=== PATIENT | female | born 1945 | race Caucasian/White ===

== ENCOUNTER 2016-12-20 12:57 | Outpatient (CLI) | payer MEDICARE, OTHER | END 2016-12-20 12:58 | disposition home or self-care (01) | DX: M25.511 Pain in right shoulder (principal); G89.29 Other chronic pain; M75.91 Shoulder lesion, unspecified, right shoulder; S43.491A Other sprain of right shoulder joint, initial encounter; M19.011 Primary osteoarthritis, right shoulder ==

== ENCOUNTER 2017-02-18 09:24 | Outpatient (CLI) | payer MEDICARE, OTHER | END 2017-02-18 09:25 | disposition home or self-care (01) | DX: R01.1 Cardiac murmur, unspecified (principal); I10 Essential (primary) hypertension ==

== ENCOUNTER 2017-06-09 08:49 | Outpatient (CLI) | payer MEDICARE, OTHER ==
[2017-06-09 09:25] LABS: ALBUMIN/GLOBULIN RATIO 1.8 (1.0-2.2); BUN - BLOOD UREA NITROGEN 12 mg/dL (6-20); CALCIUM 9.5 mg/dL (8.5-10.3); CARBON DIOXIDE - CO2 29 mmol/L (21-32); CHLORIDE 103 mmol/L (101-111); CHOL/HDL RATIO 2.4 (<4.4); CHOLESTEROL 220 mg/dL; CREATININE 0.6 mg/dL (0.4-1.0); GFR - MDRD 99 (>89); GLUCOSE 106 mg/dL (70-100); HDL CHOLESTEROL 91 mg/dL; LDL/HDL RATIO 1.3 (<4.4); POTASSIUM 3.9 mmol/L (3.5-5.0); SODIUM 139 mmol/L (135-145); TOTAL PROTEIN 7.1 g/dL (6.7-8.2); TRIGLYCERIDES 46 mg/dL; VLDL CHOLESTEROL 9 mg/dL
[2017-06-09 09:33] LABS: BASOPHILS % (AUTO) 0.4 %; EOSINOPHILS # (AUTO) 0.3 10^3/uL (0.0-0.7); HCT - HEMATOCRIT 39.4 % (37.0-47.0); HGB - HEMOGLOBIN 13.1 g/dL (12.0-16.0); LYMPHOCYTES # (AUTO) 1.6 10^3/uL (1.5-3.5); LYMPHOCYTES % (AUTO) 30.5 %; MEAN CORPUSCULAR HGB CONC 33.3 g/dL (32.0-36.0); MEAN PLATELET VOLUME 7.7 fL (7.9-10.8); MONOCYTES # (AUTO) 0.6 10^3/uL (0.0-1.0); MONOCYTES % (AUTO) 10.4 %; NEUTROPHILS # (AUTO) 2.8 10^3/uL (1.5-6.6); NEUTROPHILS % (AUTO) 52.7 %; RED CELL DISTRIBUTION WIDTH 13.8 % (12.0-15.0); UNCORRECTED WHITE BLOOD COUNT 5.4 x10^3/uL; WHITE BLOOD COUNT 5.4 x10^3/uL (4.8-10.8)
== END 2017-06-09 08:50 | disposition home or self-care (01) ==
LOC: LAB 08:49
PROVIDERS: ATTEND Physician Assistant Medical
DX: I10 Essential (primary) hypertension (principal); E55.9 Vitamin D deficiency, unspecified
CPT/HCPCS: 36415; 80053; 80061; 82306; 85025

== ENCOUNTER 2017-07-03 11:04 | Outpatient (CLI) | payer MEDICARE, OTHER ==
--- NOTE | 2017-07-03 13:08 | XRAY Report ---
TWO VIEW LEFT KNEE: 07/03/2017 CLINICAL INDICATION: Pain. FINDINGS: Frontal and lateral views of the left knee demonstrate no evidence of fracture or dislocat ion. The joint spaces are preserved. No effusion is present. IMPRESSION: NORMAL LEFT KNEE. JOB #: [id number] EXT JOB #:[id number]
== END 2017-07-03 11:05 | disposition home or self-care (01) ==
LOC: DI 11:04
PROVIDERS: ATTEND Family Medicine
DX: M25.562 Pain in left knee (principal)

== ENCOUNTER 2017-10-25 11:22 | Outpatient (CLI) | payer MEDICARE, OTHER ==
--- NOTE | 2017-10-27 08:31 | Mammography Report ---
BILATERAL DIGITAL SCREENING MAMMOGRAM: 10/25/2017 CLINICAL INDICATION: A 72-year-old with history of late childbearing, personal history of right breast cancer status post lumpectomy and radiation therapy, history of benign biopsies, for screening. COMPARISON: 10/2016, 10/2015, 10/2014, 05/2014, 09/2013, 09/2012, 09/2011, 2009. TECHNIQUE: Routine CC and MLO projections were obtained of both breasts. Bilateral laterally exaggerated craniocaudal views were also obtained. FINDINGS: The breasts demonstrate heterogeneously dense fibroglandular parenchyma bilaterally. Coarse and punctate, typically benign calcifications are present. Postoperative and posttreatment changes in the right breast are stable. No suspicious masses, clustered microcalcifications, or regions of architectural distortion are identified. IMPRESSION: Benign findings. RECOMMENDATIONS: Routine annual screening unless otherwise clinically indicated. BIRADS category 2 benign findings. STANDARD QUALIFYING STATEMENTS 1. This examination was reviewed with the aid of Computed-Aided Detection (CAD) . 2. A negative or benign imaging report should not delay biopsy if clinically suspicious findings are present. Consider surgical consultation if warranted. More than 5% of cancers are not identified by imaging. 3. Dense breasts may obscure an underlying neoplasm. TD: 10/26/2017 20:50 NELSON
== END 2017-10-25 11:23 | disposition home or self-care (01) ==
LOC: DI 11:22
PROVIDERS: ATTEND Family Medicine
DX: Z12.31 Encounter for screening mammogram for malignant neoplasm of breast (principal); Z85.3 Personal history of malignant neoplasm of breast; Z92.3 Personal history of irradiation
CPT/HCPCS: 77067

== ENCOUNTER 2018-04-26 08:54 | Outpatient (CLI) | payer MEDICARE, OTHER ==
--- NOTE | 2018-04-26 16:34 | XRAY Report ---
Procedure Date: 04/26/2018 Accession Number: [id number] / [id number] Procedure: XR - Knee 3 View RT CPT Code: FULL RESULT: EXAM: Knee 3 View RT DATE: 04/26/2018 9:34 AM CLINICAL HISTORY: KNEE PAIN, RT COMPARISON: None. TECHNIQUE: 3 views. FINDINGS: Bones: Minimal spurring along the medial knee joint. No fractures or bone lesions. Joints: No significant narrowing. No effusion. No subluxations. Soft Tissues: Quadriceps tendon insertion enthesophyte. No soft tissue swelling. IMPRESSION: Early degenerative change right knee without superimposed acute findings. RADIA
== END 2018-04-26 08:55 | disposition home or self-care (01) ==
LOC: DI 08:54
PROVIDERS: ATTEND Family Medicine
DX: M17.11 Unilateral primary osteoarthritis, right knee (principal)

== ENCOUNTER 2018-10-19 09:34 | Outpatient (CLI) | payer MEDICARE, OTHER ==
[2018-10-19 09:49] LABS: BASOPHILS % (AUTO) 0.7 %; EOSINOPHILS # (AUTO) 0.5 10^3/uL (0.0-0.7); EOSINOPHILS % (AUTO) 10.8 %; LYMPHOCYTES # (AUTO) 1.6 10^3/uL (1.5-3.5); LYMPHOCYTES % (AUTO) 31.7 %; MEAN CORPUSCULAR HEMOGLOBIN 33.4 pg (27.0-31.0); MEAN CORPUSCULAR HGB CONC 34.2 g/dL (32.0-36.0); MEAN CORPUSCULAR VOLUME 97.7 fL (81.0-99.0); MEAN PLATELET VOLUME 7.4 fL (7.9-10.8); MONOCYTES # (AUTO) 0.5 10^3/uL (0.0-1.0); MONOCYTES % (AUTO) 10.3 %; NEUTROPHILS # (AUTO) 2.3 10^3/uL (1.5-6.6); NEUTROPHILS % (AUTO) 46.5 %; PLT - PLATELET COUNT 229 10^3/uL (130-450); RED BLOOD COUNT 4.19 10^6/uL (4.20-5.40); RED CELL DISTRIBUTION WIDTH 12.8 % (12.0-15.0)
[2018-10-19 10:11] LABS: ALBUMIN 4.6 g/dL (3.2-5.5); ALBUMIN/GLOBULIN RATIO 1.6 (1.0-2.2); ALKALINE PHOSPHATASE 52 IU/L (42-121); ALT ALANINE AMINOTRANSFERASE 20 IU/L (10-60); AST ASPARTATE AMINOTRANSFERASE 22 IU/L (10-42); BILIRUBIN,TOTAL 0.9 mg/dL (0.2-1.0); BUN - BLOOD UREA NITROGEN 13 mg/dL (6-20); CALCIUM 9.4 mg/dL (8.5-10.3); CARBON DIOXIDE - CO2 27 mmol/L (21-32); CHLORIDE 100 mmol/L (101-111); CHOL/HDL RATIO 2.6 (<4.4); CHOLESTEROL 235 mg/dL; CREATININE 0.6 mg/dL (0.4-1.0); GFR - MDRD 99 (>89); GLUCOSE 99 mg/dL (70-100); HDL CHOLESTEROL 92 mg/dL; LDL CHOLESTEROL,CALCULATED 127 mg/dL; LDL/HDL RATIO 1.4 (<4.4); SODIUM 136 mmol/L (135-145); TOTAL PROTEIN 7.4 g/dL (6.7-8.2); VLDL CHOLESTEROL 16 mg/dL
== END 2018-10-19 09:35 | disposition home or self-care (01) ==
LOC: LAB 09:34
PROVIDERS: ATTEND Family Medicine
DX: I10 Essential (primary) hypertension (principal); E55.9 Vitamin D deficiency, unspecified; Z13.220 Encounter for screening for lipoid disorders; Z13.29 Encounter for screening for other suspected endocrine disorder
CPT/HCPCS: 36415; 80053; 80061; 82306; 83721; 84443; 85025

== ENCOUNTER 2018-12-06 13:53 | Outpatient (CLI) | payer MEDICARE, OTHER ==
--- NOTE | 2018-12-07 08:52 | Mammography Report ---
Reason: SCREENING MAMMO Procedure Date: 12/06/2018 Accession Number: [id number] / [id number] Procedure: FORREST - Screening Mammo w/Jamaal CPT Code: FULL RESULT: EXAM: Screening Mammo w/Jamaal DATE: 12/06/2018 2:22 PM CLINICAL HISTORY: Screening encounter. History of late childbearing. Personal history of right breast cancer status post lumpectomy and radiation. TECHNIQUE: Bilateral CC and MLO views were obtained. COMPARISON: 10/25/2017 through 05/26/2014. FINDINGS: The breasts demonstrate heterogeneously dense fibroglandular parenchyma bilaterally. Lumpectomy changes in the right breast are stable. No suspicious masses, clustered microcalcifications, or regions of architectural distortion are identified. IMPRESSION: Benign findings RECOMMENDATION: Routine annual screening unless otherwise clinically indicated. BIRADS CATEGORY 2: Benign findings STANDARD QUALIFYING STATEMENTS: 1. This examination was not reviewed with the aid of Computer-Aided Detection (CAD). 2. A negative or benign imaging report should not preclude biopsy if clinically suspicious findings are present. 3. Dense breasts may obscure an underlying neoplasm. 4. This examination was reviewed with the aid of 3D breast imaging (tomosynthesis).
== END 2018-12-06 13:54 | disposition home or self-care (01) ==
LOC: DI 13:53
DX: Z12.31 Encounter for screening mammogram for malignant neoplasm of breast (principal); Z85.3 Personal history of malignant neoplasm of breast
CPT/HCPCS: 77063; 77067

== ENCOUNTER 2019-12-02 08:30 | Outpatient (CLI) | payer MEDICARE, OTHER ==
[2019-12-02 12:10] LABS: BASOPHILS % (AUTO) 0.6 %; EOSINOPHILS # (AUTO) 0.2 10^3/uL (0.0-0.7); EOSINOPHILS % (AUTO) 4.3 %; HGB - HEMOGLOBIN 13.7 g/dL (12.0-16.0); LYMPHOCYTES # (AUTO) 1.7 10^3/uL (1.5-3.5); MEAN CORPUSCULAR HEMOGLOBIN 33.3 pg (27.0-31.0); MONOCYTES # (AUTO) 0.7 10^3/uL (0.0-1.0); MONOCYTES % (AUTO) 14.4 %; NEUTROPHILS % (AUTO) 43.5 %; PLT - PLATELET COUNT 259 10^3/uL (130-450); RED BLOOD COUNT 4.11 10^6/uL (4.20-5.40); RED CELL DISTRIBUTION WIDTH 12.3 % (12.0-15.0); WHITE BLOOD COUNT 4.7 x10^3/uL (4.8-10.8)
[2019-12-02 12:45] LABS: ALBUMIN 4.5 g/dL (3.2-5.5); ALBUMIN/GLOBULIN RATIO 1.6 (1.0-2.2); ALKALINE PHOSPHATASE 44 IU/L (42-121); ALT ALANINE AMINOTRANSFERASE 23 IU/L (10-60); AST ASPARTATE AMINOTRANSFERASE 26 IU/L (10-42); BILIRUBIN,TOTAL 1.2 mg/dL (0.2-1.0); BUN - BLOOD UREA NITROGEN 9 mg/dL (6-20); CALCIUM 9.4 mg/dL (8.5-10.3); CARBON DIOXIDE - CO2 28 mmol/L (21-32); CHLORIDE 100 mmol/L (101-111); CHOL/HDL RATIO 2.2 (<4.4); CHOLESTEROL 199 mg/dL; CREATININE 0.6 mg/dL (0.4-1.0); GFR - MDRD 98 (>89); GLUCOSE 101 mg/dL (70-100); HDL CHOLESTEROL 91 mg/dL; LDL CHOLESTEROL,CALCULATED 97 mg/dL; LDL/HDL RATIO 1.1 (<4.4); SODIUM 137 mmol/L (135-145); TOTAL PROTEIN 7.3 g/dL (6.7-8.2); VLDL CHOLESTEROL 11 mg/dL
== END 2019-12-02 23:59 | disposition home or self-care (01) ==
LOC: LAB.WCP 08:30
PROVIDERS: ATTEND Family Medicine
DX: I10 Essential (primary) hypertension (principal); E04.1 Nontoxic single thyroid nodule
CPT/HCPCS: 36415; 80053; 80061; 83721; 84443; 85025

== ENCOUNTER 2019-12-20 13:08 | Outpatient (CLI) | payer MEDICARE ==
--- NOTE | 2019-12-24 08:52 | Mammography Report ---
Reason: ANNUAL MAMMO Procedure Date: 12/20/2019 Accession Number: [id number] / [id number] Procedure: FORREST - Screening Mammo w/Jamaal CPT Code: Final Report FULL RESULT: EXAM: Screening Mammo w/Jamaal DATE: 12/20/2019 1:46 PM CLINICAL HISTORY: Screening encounter. History of late childbearing and personal history of breast cancer status post right breast lumpectomy in 2006 with chemoradiation. History of benign left breast biopsy. TECHNIQUE: (B) - Bilateral CC and MLO views were obtained. Right laterally exaggerated CC view is obtained. COMPARISON: 12/06/2018 through 09/17/2010. PARENCHYMAL PATTERN: (D) - The breast(s) demonstrate(s) heterogeneously dense fibroglandular parenchyma. FINDINGS: Postlumpectomy and posttreatment changes in the right breast are stable. There are no suspicious masses, calcifications, or areas of distortion. IMPRESSION: Benign findings. BI-RADS category 2. RECOMMENDATION: (ANNUAL) - Recommend routine annual screening mammography. BI-RADS CATEGORY: (2) - Benign Findings. STANDARD QUALIFYING STATEMENTS: 1. This examination was not reviewed with the aid of Computer-Aided Detection (CAD). 2. A negative or benign imaging report should not preclude biopsy if clinically suspicious findings are present. 3. Dense breasts may obscure an underlying neoplasm. 4. This examination was reviewed with the aid of 3D breast imaging (tomosynthesis).
== END 2019-12-20 13:09 | disposition home or self-care (01) ==
LOC: DI 13:08
DX: Z12.31 Encounter for screening mammogram for malignant neoplasm of breast (principal); Z85.3 Personal history of malignant neoplasm of breast; Z92.21 Personal history of antineoplastic chemotherapy; Z92.3 Personal history of irradiation
CPT/HCPCS: 77063; 77067

== ENCOUNTER 2021-01-05 08:33 | Outpatient (CLI) | payer MEDICARE ==
--- NOTE | 2021-01-06 10:05 | Mammography Report ---
BILATERAL DIGITAL SCREENING MAMMOGRAM 3D/2D: 01/05/2021 CLINICAL: Routine screening. Personal history of right breast cancer. Comparison is made to exams dated: 12/20/2019 mammogram, 12/06/2018 mammogram, 10/25/2017 mammogram, 1 12/26/2015 mammogram, 10/15/2015 mammogram, and 10/27/2014 mammogram - [facility]. The tissue of both breasts is heterogeneously dense. This may lower the sensitivity of mammography. There are benign post operative findings in the right breast. No significant masses, calcifications, or other findings are seen in either breast. There has been no significant interval change. IMPRESSION: BENIGN There is no mammographic evidence of malignancy. A 1 year screening mammogram is recommended. This exam was interpreted at Station ID: [id number]. NOTE: For mammograms, a report in lay terms will be sent to the patient. Approximately 15% of breast malignancies will not be visualized mammographically. In the management of a palpable breast mass, a negative mammogram must not discourage biopsy of a clinically suspicious lesion. Electronically Signed By: Brannon Henry M.D. [facility] [place]:01/05/2021 09:55:28 ACR BI-RADS Category 2: Benign Finding(s) 3342F PARENCHYMAL PATTERN: (D) - The breast(s) demonstrate(s) heterogeneously dense fibroglandular ernst valdes. BI-RADS CATEGORY: (2) - 2 RECOMMENDATION: (ANNUAL) - Recommend routine annual screening mammography. [id number] 1 year screening LATERALITY: (B)
== END 2021-01-05 08:34 | disposition home or self-care (01) ==
LOC: DI 08:33
DX: Z12.31 Encounter for screening mammogram for malignant neoplasm of breast (principal); Z08 Encounter for follow-up examination after completed treatment for malignant neoplasm; Z85.3 Personal history of malignant neoplasm of breast

== ENCOUNTER 2021-01-05 09:14 | Outpatient (CLI) | payer MEDICARE ==
[2021-01-05 09:41] LABS: BASOPHILS % (AUTO) 0.5 %; EOSINOPHILS # (AUTO) 0.3 10^3/uL (0.0-0.7); EOSINOPHILS % (AUTO) 4.4 %; HCT - HEMATOCRIT 41.8 % (37.0-47.0); HGB - HEMOGLOBIN 13.9 g/dL (12.0-16.0); LYMPHOCYTES # (AUTO) 1.2 10^3/uL (1.5-3.5); LYMPHOCYTES % (AUTO) 19.8 %; MEAN CORPUSCULAR HEMOGLOBIN 32.8 pg (27.0-31.0); MEAN CORPUSCULAR HGB CONC 33.3 g/dL (32.0-36.0); MEAN CORPUSCULAR VOLUME 98.6 fL (81.0-99.0); MEAN PLATELET VOLUME 9.1 fL (7.9-10.8); MONOCYTES # (AUTO) 0.6 10^3/uL (0.0-1.0); MONOCYTES % (AUTO) 9.5 %; NEUTROPHILS # (AUTO) 3.9 10^3/uL (1.5-6.6); NEUTROPHILS % (AUTO) 65.6 %; PLT - PLATELET COUNT 284 10^3/uL (130-450); RED BLOOD COUNT 4.24 10^6/uL (4.20-5.40); RED CELL DISTRIBUTION WIDTH 12.1 % (12.0-15.0); WHITE BLOOD COUNT 5.9 x10^3/uL (4.8-10.8)
[2021-01-05 10:04] LABS: ALBUMIN 4.6 g/dL (3.2-5.5); ALBUMIN/GLOBULIN RATIO 1.6 (1.0-2.2); ALKALINE PHOSPHATASE 58 IU/L (42-121); ALT ALANINE AMINOTRANSFERASE 19 IU/L (10-60); AST ASPARTATE AMINOTRANSFERASE 21 IU/L (10-42); BILIRUBIN,TOTAL 0.7 mg/dL (0.2-1.0); BUN - BLOOD UREA NITROGEN 14 mg/dL (6-20); CALCIUM 9.6 mg/dL (8.5-10.3); CARBON DIOXIDE - CO2 26 mmol/L (21-32); CHLORIDE 103 mmol/L (101-111); CHOL/HDL RATIO 2.2 (<4.4); CHOLESTEROL 247 mg/dL; CREATININE 0.6 mg/dL (0.4-1.0); GFR - MDRD 98 (>89); GLUCOSE 94 mg/dL (70-100); HDL CHOLESTEROL 110 mg/dL; LDL CHOLESTEROL,CALCULATED 128 mg/dL; LDL/HDL RATIO 1.2 (<4.4); POTASSIUM 3.6 mmol/L (3.5-5.0); SODIUM 140 mmol/L (135-145); TOTAL PROTEIN 7.5 g/dL (6.7-8.2); TRIGLYCERIDES 46 mg/dL; VLDL CHOLESTEROL 9 mg/dL
[2021-01-05 10:12] LABS: THYROID STIMULATING HORMONE 1.4 uIU/mL (0.34-5.60)
== END 2021-01-05 09:15 | disposition home or self-care (01) ==
LOC: LAB 09:14
PROVIDERS: ATTEND Family Medicine
DX: I10 Essential (primary) hypertension (principal); E55.9 Vitamin D deficiency, unspecified; E04.1 Nontoxic single thyroid nodule
CPT/HCPCS: 36415; 80053; 80061; 82306; 83721; 84443; 85025

== ENCOUNTER 2021-01-12 11:55 | Outpatient (CLI) | payer MEDICARE ==
--- NOTE | 2021-01-12 13:15 | XRAY Report ---
PROCEDURE: Hand 3 View RT INDICATIONS: LOCALIZED SWELLING ON FINGER,RIGHT TECHNIQUE: 3 views of the hand(s) acquired. COMPARISON: None. FINDINGS: Bones: No acute fracture or dislocation. Polyarticular osteoarthritic changes are seen throughout the right hand. Findings involve the distal interphalangeal and proximal interphalangeal joints of the s econd through fifth fingers. Findings are most severe in the distal interphalangeal joints of the rig ht fourth and fifth fingers as well as the proximal interphalangeal joint of the right fifth finger. There is mild flexion at the proximal interphalangeal joint of the right fifth finger. There are also severe osteoarthritic changes involving the first carpometacarpal joint. Degenerative changes of the right thumb interphalangeal and metacarpophalangeal joints are visualized with prominent interphalan geal joint osteophyte formation. No periarticular osseous erosions identified. No suspicious bony les ions. Soft tissues: No suspicious soft tissue calcifications. IMPRESSION: Moderate polyarticular osteophytic changes of the right hand most severe at the right first carpometa carpal joint. There is also moderate osteoarthrosis at the proximal interphalangeal joint of the righ t fifth finger as well as the interphalangeal joint of the right thumb. Reviewed by: Malachi Yen MD on 01/12/2021 1:14 PM PST Approved by: Malachi Yen MD on 01/12/2021 1:14 PM PST Station ID: [id number]
== END 2021-01-12 11:56 | disposition home or self-care (01) ==
LOC: DI 11:55
PROVIDERS: ATTEND Family Medicine
DX: R22.31 Localized swelling, mass and lump, right upper limb (principal); M19.041 Primary osteoarthritis, right hand

== ENCOUNTER 2021-02-02 14:23 | Outpatient (CLI) | payer MEDICARE ==
--- NOTE | 2021-02-02 16:34 | XRAY Report ---
PROCEDURE: Finger(s) LT INDICATIONS: LEFT THUMB LACERATION TECHNIQUE: AP hand, 3 views of the left thumb finger(s) acquired. COMPARISON: None FINDINGS: Bones: No acute fractures or dislocations. Moderate degenerative changes of the left thumb interpha langeal, metacarpophalangeal and carpometacarpal joints. Degenerative changes of the triscaphe joint. No suspicious bony lesions. Soft tissues: No suspicious soft tissue calcifications. There is an oblong 4 mm x 2 mm soft tissue density projecting near the distal margin of the left thumb proximal phalanx. There is overlying soft tissue swelling. IMPRESSION: 1. A 4 mm x 2 mm oblong soft tissue density projecting near the distal margin of the left thumb proxi mal phalanx. This is seen near the dorsal aspect of the thumb. Findings may represent a radiopaque so ft tissue foreign body versus chronic soft tissue calcification. Otherwise, no radiopaque soft tissue foreign body visualized in the palmar side of the distal phalanx of the thumb as reported on patient history. 2. Moderate degenerative changes of the left thumb. Reviewed by: Malachi Yen MD on 02/02/2021 4:33 PM PDT Approved by: Malachi Yen MD on 02/02/2021 4:33 PM PDT Station ID: [id number]
== END 2021-02-02 23:59 | disposition home or self-care (01) ==
LOC: DI.N 14:23
PROVIDERS: ATTEND Family Medicine
DX: S61.022A Laceration with foreign body of left thumb without damage to nail, initial encounter (principal); M19.042 Primary osteoarthritis, left hand

== ENCOUNTER 2022-02-15 08:57 | Outpatient (CLI) | payer MEDICARE, BC ==
--- NOTE | 2022-02-16 14:06 | Mammography Report ---
BILATERAL DIGITAL SCREENING MAMMOGRAM 3D/2D: 02/15/2022 CLINICAL: Routine screening. Comparison is made to exams dated: 01/05/2021 mammogram, 12/20/2019 mammogram, 12/06/2018 mammogram, mammogram, 10/25/2016 mammogram, and 10/15/2015 mammogram - [facility]. Th e tissue of both breasts is heterogeneously dense. This may lower the sensitivity of mammography. There are benign calcifications in the left breast. There also are benign post operative findings in the right breast. No significant masses, calcifications, or other findings are seen in either breast. There has been no significant interval change. IMPRESSION: BENIGN There is no mammographic evidence of malignancy. A 1 year screening mammogram is recommended. This exam was interpreted at Station ID: [id number]. NOTE: For mammograms, a report in lay terms will be sent to the patient. Approximately 15% of breast malignancies will not be visualized mammographically. In the management of a palpable breast mass, a negative mammogram must not discourage biopsy of a clinically suspicious lesion. Electronically Signed By: Brannon Henry M.D. [facility] [place]:02/15/2022 12:55:49 ACR BI-RADS Category 2: Benign Finding(s) 3342F PARENCHYMAL PATTERN: (D) - The breast(s) demonstrate(s) heterogeneously dense fibroglandular parjay jay valdes. BI-RADS CATEGORY: (2) - 2 RECOMMENDATION: (ANNUAL) - Recommend routine annual screening mammography. [id number] 1 year screening LATERALITY: (B)
== END 2022-02-15 08:58 | disposition home or self-care (01) ==
LOC: DI.N 08:57
DX: Z12.31 Encounter for screening mammogram for malignant neoplasm of breast (principal)

== ENCOUNTER 2022-03-15 14:26 | Outpatient (CLI) | payer MEDICARE, BC ==
[2022-03-15 18:17] LABS: FECAL OCCULT BLOOD (FIT) NEGATIVE (NEGATIVE)
== END 2022-03-15 23:59 | disposition home or self-care (01) ==
LOC: LAB.N 14:26
PROVIDERS: ATTEND Family Medicine
DX: Z12.11 Encounter for screening for malignant neoplasm of colon (principal)
CPT/HCPCS: 82274

== ENCOUNTER 2022-04-16 09:37 | Outpatient (CLI) | payer MEDICARE ==
[2022-04-16 19:09] LABS: BASOPHILS % (AUTO) 0.8 %; EOSINOPHILS # (AUTO) 0.1 10^3/uL (0.0-0.7); EOSINOPHILS % (AUTO) 2.6 %; HCT - HEMATOCRIT 41.8 % (37.0-47.0); HGB - HEMOGLOBIN 13.6 g/dL (12.0-16.0); LYMPHOCYTES # (AUTO) 1.6 10^3/uL (1.5-3.5); LYMPHOCYTES % (AUTO) 31.2 %; MEAN CORPUSCULAR HGB CONC 32.5 g/dL (32.0-36.0); MEAN CORPUSCULAR VOLUME 98.4 fL (81.0-99.0); MEAN PLATELET VOLUME 10.1 fL (7.9-10.8); MONOCYTES # (AUTO) 0.7 10^3/uL (0.0-1.0); MONOCYTES % (AUTO) 13.3 %; NEUTROPHILS # (AUTO) 2.6 10^3/uL (1.5-6.6); NEUTROPHILS % (AUTO) 51.7 %; PLT - PLATELET COUNT 269 10^3/uL (130-450); RED BLOOD COUNT 4.25 10^6/uL (4.20-5.40); RED CELL DISTRIBUTION WIDTH 12.8 % (12.0-15.0)
[2022-04-16 19:44] LABS: ALBUMIN 4.6 g/dL (3.2-5.5); ALBUMIN/GLOBULIN RATIO 1.5 (1.0-2.2); ALKALINE PHOSPHATASE 56 IU/L (42-121); ALT ALANINE AMINOTRANSFERASE 23 IU/L (10-60); AST ASPARTATE AMINOTRANSFERASE 25 IU/L (10-42); BILIRUBIN,TOTAL 0.7 mg/dL (0.2-1.0); BUN - BLOOD UREA NITROGEN 11 mg/dL (6-20); CALCIUM 9.8 mg/dL (8.5-10.3); CARBON DIOXIDE - CO2 28 mmol/L (21-32); CHLORIDE 101 mmol/L (101-111); CHOL/HDL RATIO 1.9 (<4.4); CHOLESTEROL 222 mg/dL; CREATININE 0.6 mg/dL (0.4-1.0); GFR - MDRD 98 (>89); GLUCOSE 111 mg/dL (70-100); HDL CHOLESTEROL 115 mg/dL; LDL CHOLESTEROL,CALCULATED 98 mg/dL; LDL/HDL RATIO 0.9 (<4.4); SODIUM 138 mmol/L (135-145); TOTAL PROTEIN 7.7 g/dL (6.7-8.2); TRIGLYCERIDES 45 mg/dL; VLDL CHOLESTEROL 9 mg/dL
== END 2022-04-16 09:38 | disposition home or self-care (01) ==
LOC: LAB.N 09:37
PROVIDERS: ATTEND Nurse Practitioner Family
DX: I10 Essential (primary) hypertension (principal); Z13.220 Encounter for screening for lipoid disorders; E55.9 Vitamin D deficiency, unspecified
CPT/HCPCS: 36415; 80053; 80061; 82306; 83721; 85025

== ENCOUNTER 2022-04-26 10:51 | Outpatient (CLI) | payer MEDICARE | END 2022-04-26 10:52 | disposition home or self-care (01) | LOC: DI 10:51 | PROVIDERS: ATTEND Nurse Practitioner Family | DX: I51.7 Cardiomegaly (principal); I77.819 Aortic ectasia, unspecified site | CPT/HCPCS: 93306 ==

== ENCOUNTER 2022-05-27 15:19 | Emergency (ER) | payer MEDICARE ==
[2022-05-27 15:55] LABS: BASOPHILS # (AUTO) 0.1 10^3/uL (0.0-0.1); BASOPHILS % (AUTO) 0.9 %; EOSINOPHILS % (AUTO) 11.8 %; HGB - HEMOGLOBIN 13.8 g/dL (12.0-16.0); LYMPHOCYTES # (AUTO) 1.8 10^3/uL (1.5-3.5); LYMPHOCYTES % (AUTO) 21.4 %; MEAN CORPUSCULAR HEMOGLOBIN 32.8 pg (27.0-31.0); MEAN CORPUSCULAR HGB CONC 33.7 g/dL (32.0-36.0); MEAN CORPUSCULAR VOLUME 97.4 fL (81.0-99.0); MEAN PLATELET VOLUME 9.3 fL (7.9-10.8); MONOCYTES # (AUTO) 0.8 10^3/uL (0.0-1.0); MONOCYTES % (AUTO) 9.6 %; NEUTROPHILS # (AUTO) 4.6 10^3/uL (1.5-6.6); NEUTROPHILS % (AUTO) 55.9 %; PLT - PLATELET COUNT 253 10^3/uL (130-450); RED BLOOD COUNT 4.21 10^6/uL (4.20-5.40); RED CELL DISTRIBUTION WIDTH 12.3 % (12.0-15.0); WHITE BLOOD COUNT 8.2 x10^3/uL (4.8-10.8)
[2022-05-27 16:11] LABS: ALBUMIN 4.7 g/dL (3.2-5.5); ALBUMIN/GLOBULIN RATIO 1.7 (1.0-2.2); BILIRUBIN,TOTAL 0.8 mg/dL (0.2-1.0); CALCIUM 9.5 mg/dL (8.5-10.3); CREATININE 0.6 mg/dL (0.4-1.0); POTASSIUM 3.7 mmol/L (3.5-5.0); TOTAL PROTEIN 7.4 g/dL (6.7-8.2)
--- NOTE | 2022-05-27 16:46 | ED Physician Documentation ---
PD HPI CHEST PAIN - Stated complaint Stated Complaint: HYPERTENSION - Chief complaint Chief Complaint: Cardiac - History obtained from History obtained from: Patient - History of Present Illness Timing - onset: Today Timing - onset during: Rest, Light activity (awoke this morning and felt okay, with normal usual AM BP of 133 systolic. Later in morning she felt somewhat lightheaded and some dyspnea. Took BP again and it was 190-200 systolic for several readings. Called PMD office and was directed to come to ER and they were going to phone in [facility].) Timing - duration: Hours (her BP stayed elevated to over 180 systolic for few hours.) Timing - details: Gradual onset, Still present Quality: Pressure Location: Right shoulder/arm Worsened by: No: Exertion, Inspiration, Movement Associated symptoms: Feeling faint / dizzy (pressure feeling in head.). No: Shortness of air, Nausea Similar symptoms before: Diagnosis (has had similar symptoms when atrial fib or rapid rate, and with elevated BP. She states BP recently has been about 130-150 systolic in mornings, so reasonably controlled.) Recently seen: Not recently seen Review of Systems Constitutional: denies: Fever Nose: denies: Rhinorrhea / runny nose, Congestion Throat: denies: Sore throat Cardiac: denies: Pedal edema, Calf pain Respiratory: denies: Dyspnea, Cough GI: denies: Nausea, Vomiting, Diarrhea, Bloody / black stool Neurologic: denies: Generalized weakness PD PAST MEDICAL HISTORY - Past Medical History Cardiovascular: Hypertension, Atrial fibrillation (has piano technician first appt Johanna 20 I believe she said.) Respiratory: Asthma Neuro: None Endocrine/Autoimmune: None GI: None 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: Breast cancer : None HEENT: None Musculoskeletal: Osteoarthritis Derm: None - Past Surgical History Past Surgical History: Yes Ortho: Other /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: Mastectomy - Present Medications Home Medications: Ambulatory Orders Medication Instructions Recorded Confirmed ALPRAZolam [Xanax] 0.25 mg PO HS PRN 03/18/13 04/28/22 Azelastine HCl [Astepro] 1 spray NS DAILY 03/18/13 04/28/22 Fluticasone [Flonase] 1 sprays RAMIN BID 03/18/13 04/28/22 Fluticasone/Salmeterol 250/50 2 puffs INH BID 03/18/13 04/28/22 [Advair 250 Mcg/50 Mcg] Diltiazem HCl [Cardizem LA] 120 mg PO DAILY #30 tab 04/11/22 Amlodipine Besylate [Norvasc] 10 mg ORAL DAILY 04/28/22 04/28/22 Metoprolol Tartrate [Lopressor] 50 mg PO DAILY 30 Days #30 tablet 04/28/22 Apixaban [Eliquis] 5 mg PO BID #60 tablet 05/22/22 Metoprolol Succinate [Toprol Xl] 50 mg PO DAILY #30 tablet 05/22/22 - Allergies Allergies/Adverse Reactions: Allergies Allergy/AdvReac Type Severity Reaction Status Date / Time chlordiazepoxide HCl * Allergy Severe Rash Verified 05/27/22 15:39 [From Librium] phenobarbital Allergy Severe Rash Verified 05/27/22 15:39 nickel [Nickel] Allergy Intermediate Rash Verified 05/27/22 15:39 Sulfa (Sulfonamide Allergy Intermediate Rash Verified 05/27/22 15:39 Antibiotics) prednisolone Allergy Unknown Verified 05/27/22 15:39 prednisone Allergy Unknown Verified 05/27/22 15:39 lisinopril AdvReac Unknown Verified 05/27/22 15:39 - Social History Does the pt smoke?: No Smoking Status: Never smoker Does the pt drink ETOH?: Yes Does the pt have substance abuse?: Yes - Immunizations Immunizations are current?: Yes PD ED PE NORMAL - Vitals Vital signs reviewed: Yes - General General: Alert and oriented X 3, No acute distress, Well developed/nourished - Neck Neck: Supple, no meningeal sign, No adenopathy - Cardiac Cardiac: RRR, No murmur - Respiratory Respiratory: No respiratory distress, Clear bilaterally - Abdomen Abdomen: Soft, Non tender - Derm Derm: Normal color, Warm and dry - Extremities Extremities: No edema, No calf tenderness / cord - Neuro Neuro: Alert and oriented X 3, No motor deficit, Normal speech Results - Vitals Vitals: Vital Signs - 24 hr 05/27/22 05/27/22 05/27/22 15:36 16:32 17:33 Temperature 36.9 C Heart Rate 71 54 L Respiratory 16 10 L Rate Blood Pressure 176/81 H 134/71 H Blood Pressure 155/71 H [Right] O2 Saturation 98 99 Oxygen O2 Source Room air - EKG (time done) 15:44 Rate: Rate (enter#) (70) Rhythm: NSR Hiko: Normal Intervals: Normal FL QRS: Normal Ischemia: Normal ST segments. No: ST elevation c/w ischemia, ST depression Compare to prior EKG: Unchanged from prior EKG - Labs Labs: Laboratory Tests 05/27/22 05/27/22 05/27/22 15:48 15:48 15:48 WBC 8.2 RBC 4.21 Hgb 13.8 Hct 41.0 MCV 97.4 MCH 32.8 H MCHC 33.7 RDW 12.3 Plt Count 253 MPV 9.3 Neut # (Auto) 4.6 Lymph # (Auto) 1.8 [place] # (Auto) 0.8 Eos # (Auto) 1.0 H Baso # (Auto) 0.1 Absolute Nucleated RBC 0.00 Nucleated RBC % 0.0 Sodium 133 L Potassium 3.7 Chloride 96 L Carbon Dioxide 26 Anion Gap 11.0 BUN 15 Creatinine 0.6 Estimated GFR (MDRD) 97 Glucose 204 H Calcium 9.5 Total Bilirubin 0.8 AST 24 ALT 24 Alkaline Phosphatase 55 Troponin I High Sens 4.1 Total Protein 7.4 Albumin 4.7 Globulin 2.7 Albumin/Globulin Ratio 1.7 Lipase 26 PD MEDICAL DECISION MAKING - ED course Complexity details: reviewed results, considered differential (She is not in atrial fib. BP comes down reasonably here without intervention. I would be reluctant to start new BP med based on just elevated today. She is going to tack picker new Rx from PCP office but I encourage her to watch BP over next couple of days or more before starting it. ), d/w patient Departure - Departure Disposition: Home, Self Care Clinical Impression: Transient hypertension, Paroxysmal atrial fibrillation Condition: Stable Record reviewed to determine appropriate education?: Yes Follow-Up: [facility] [Provider Group] Comments: Your heart rhythm is normal at this time without atrial fibrillation. Your blood pressure is decreasing reasonably without particular treatment. I would suggest that you continue with the metoprolol current dosing. You can tack picker the myocarditis prescribed by your primary care but I would actually hold off on starting it until you see how your blood pressure is doing tomorrow and the next day. I would be hesitant to overreact to the blood pressure being elevated today since it was good at 130s systolic yesterday and this morning. Follow-up with piano technician as planned in June. Hopefully your primary care will be able to set you up for a recording heart monitor in the interval before that. Return to the ER as needed. Discharge Date/Time: 05/27/22 17:38
[2022-05-27 17:33] VITALS: BP 134/71
== END 2022-05-27 17:38 | disposition home or self-care (01) ==
LOC: ED 15:19
DX: I10 Essential (primary) hypertension (principal); I48.0 Paroxysmal atrial fibrillation; Z79.01 Long term (current) use of anticoagulants
CPT/HCPCS: 36415; 80053; 83690; 84484; 85025; 93005; 99282; 99284

== ENCOUNTER 2022-10-27 12:52 | Outpatient (CLI) | payer MEDICARE ==
--- NOTE | 2022-10-27 17:07 | DEXA Report ---
PROCEDURE: Dexa Spine and/or Hip INDICATIONS: POST MENOPAUSAL TECHNIQUE: Dual energy x-ray absorptiometry (DXA) was performed on a [employer] System. Regions measur ed are the AP Spine, femoral neck, and if needed forearm. COMPARISON: None. FINDINGS: Lumbar Spine: Bone Mineral Density 1.300 g/cm/cm,T score 1.0. Left Femoral Neck: Bone Mineral Density 0.878 g/cm/cm, T score -1.2. Left Hip: Bone Mineral Density 0.875 g/cm/cm,T score -1.1. (T score greater or equal to -1.0: NORMAL) (T score from -1.1 to -2.4: OSTEOPENIA) (T score less than or equal to -2.5 to: OSTEOPOROSIS) Impression: Osteopenia. Patients with diagnosis of osteoporosis or osteopenia should have regular bone mineral density assess ment. For those eligible for Medicare, routine testing is allowed once every 2 years. Testing frequ ency can be increased for patients who have rapidly progressing disease or for those who are receivin g medical therapy to restore bone mass. Reviewed by: Raymond Prabhakar MD on 10/27/2022 5:05 PM PST Approved by: Raymond Prabhakar MD on 10/27/2022 5:05 PM PST Station ID: [id number]
== END 2022-10-27 12:53 | disposition home or self-care (01) ==
LOC: DI 12:52
PROVIDERS: ATTEND Nurse Practitioner Family
DX: M85.89 Other specified disorders of bone density and structure, multiple sites (principal); Z78.0 Asymptomatic menopausal state

== ENCOUNTER 2022-11-04 12:56 | Outpatient (CLI) | payer MEDICARE | END 2022-11-04 12:57 | disposition home or self-care (01) | LOC: LAB.N 12:56 | PROVIDERS: ATTEND Nurse Practitioner | DX: Z53.9 Procedure and treatment not carried out, unspecified reason (principal) ==

== ENCOUNTER 2022-11-07 11:17 | Outpatient (CLI) | payer MEDICARE ==
[2022-11-07 18:11] LABS: CALCIUM 9.7 mg/dL (8.5-10.3); CREATININE 0.6 mg/dL (0.4-1.0); POTASSIUM 4.6 mmol/L (3.5-5.0)
== END 2022-11-07 11:18 | disposition home or self-care (01) ==
LOC: LAB.N 11:17
PROVIDERS: ATTEND Internal Medicine Cardiovascular Disease
DX: I48.0 Paroxysmal atrial fibrillation (principal)
CPT/HCPCS: 36415; 80048; 84443

== ENCOUNTER 2022-11-21 08:00 | Outpatient (CLI) | payer MEDICARE | END 2022-11-21 23:59 | disposition home or self-care (01) | LOC: LAB.N 08:00 | PROVIDERS: ATTEND Internal Medicine Cardiovascular Disease | DX: U07.1 COVID-19 (principal); I48.0 Paroxysmal atrial fibrillation ==

== ENCOUNTER 2023-02-16 08:21 | Outpatient (CLI) | payer MEDICARE ==
--- NOTE | 2023-02-17 09:23 | Mammography Report ---
BILATERAL DIGITAL SCREENING MAMMOGRAM 3D/2D: 02/16/2023 CLINICAL: Routine screening. Personal history of right breast cancer. High risk screening. Routine sc reening. Comparison is made to exams dated: 02/15/2022 mammogram, 01/05/2021 mammogram, 12/20/2019 mammogram, 11/08 mammogram, 10/25/2017 mammogram, and 10/25/2016 mammogram - [facility]. Both breasts are heterogeneously dense, which may obscure small masses (category c / 51-75% glandular tissue). There are benign calcifications in the left breast. There also are benign post operative findings in the right breast. No significant masses, calcifications, or other findings are seen in either breast. There has been no significant interval change. IMPRESSION: BENIGN There is no mammographic evidence of malignancy. A 1 year screening mammogram is recommended. This exam was interpreted at Station ID: [id number]. NOTE: For mammograms, a report in lay terms will be sent to the patient. Approximately 15% of breast malignancies will not be visualized mammographically. In the management of a palpable breast mass, a negative mammogram must not discourage biopsy of a clinically suspicious lesion. Electronically Signed By: Malachi Yen M.D. [facility]:02/16/2023 09:12:19 letter sent: No_Letter ACR BI-RADS Category 2: Benign Finding(s) 3342F PARENCHYMAL PATTERN: (D) - The breast(s) demonstrate(s) heterogeneously dense fibroglandular ernst valdes. BI-RADS CATEGORY: (2) - 2 Mammogram [id number] 1 year screening LATERALITY: (B)
== END 2023-02-16 08:22 | disposition home or self-care (01) ==
LOC: DI.N 08:21
DX: Z12.31 Encounter for screening mammogram for malignant neoplasm of breast (principal); Z85.3 Personal history of malignant neoplasm of breast

== ENCOUNTER 2023-05-31 17:11 | Emergency (ER) | payer MEDICARE ==
[2023-05-31 17:27] VITALS: BP 164/89
[2023-05-31 17:48] LABS: BASOPHILS # (AUTO) 0.1 10^3/uL (0.0-0.1); BASOPHILS % (AUTO) 0.7 %; EOSINOPHILS # (AUTO) 0.3 10^3/uL (0.0-0.7); EOSINOPHILS % (AUTO) 4.6 %; HCT - HEMATOCRIT 39.5 % (37.0-47.0); HGB - HEMOGLOBIN 13.1 g/dL (12.0-16.0); LYMPHOCYTES # (AUTO) 1.8 10^3/uL (1.5-3.5); LYMPHOCYTES % (AUTO) 24.5 %; MEAN CORPUSCULAR HGB CONC 33.2 g/dL (32.0-36.0); MEAN CORPUSCULAR VOLUME 96.6 fL (81.0-99.0); MEAN PLATELET VOLUME 9.2 fL (7.9-10.8); MONOCYTES # (AUTO) 0.7 10^3/uL (0.0-1.0); MONOCYTES % (AUTO) 9.3 %; NEUTROPHILS # (AUTO) 4.4 10^3/uL (1.5-6.6); NEUTROPHILS % (AUTO) 60.6 %; PLT - PLATELET COUNT 269 10^3/uL (130-450); RED BLOOD COUNT 4.09 10^6/uL (4.20-5.40); RED CELL DISTRIBUTION WIDTH 12.8 % (12.0-15.0); WHITE BLOOD COUNT 7.2 x10^3/uL (4.8-10.8)
--- NOTE | 2023-05-31 17:58 | XRAY Report ---
PROCEDURE: Chest 1 View X-Ray INDICATIONS: Chest Pain TECHNIQUE: One view of the chest was acquired. COMPARISON: Chest x-ray 05/17/2022. FINDINGS: Surgical changes and devices: Right axillary clips as well as clips overlying the inferior right hem ithorax. Lungs and pleura: No pleural effusions or pneumothorax. Lungs are clear. Mediastinum: Mediastinal contours appear normal. Heart size is mildly prominent. Bones and chest wall: No suspicious bony lesions. Overlying soft tissues appear unremarkable. IMPRESSION: No acute cardiopulmonary process. Reviewed by: Colette Headley MD on 05/31/2023 5:56 PM PDT Approved by: Colette Headley MD on 05/31/2023 5:56 PM PDT Station ID: [id number]
[2023-05-31 18:04] LABS: ALBUMIN 4.7 g/dL (3.2-5.5); ALBUMIN/GLOBULIN RATIO 1.7 (1.0-2.2); BILIRUBIN,TOTAL 0.6 mg/dL (0.2-1.0); CALCIUM 9.8 mg/dL (8.5-10.3); CREATININE 0.6 mg/dL (0.6-1.3); POTASSIUM 3.4 mmol/L (3.5-4.5); TOTAL PROTEIN 7.4 g/dL (6.4-8.9)
--- NOTE | 2023-05-31 18:17 | ED Physician Documentation ---
History of Present Illness - Stated complaint Stated Complaint: CHEST PX,HIGH BP - Chief complaint Chief Complaint: General - History obtained from History obtained from: Patient - Additonal information Additional information: 78-year-old woman with history of atrial fibrillation, has not had A-fib since an ablation done earlier this year. No history of cardiac ischemia. Last 2 weeks she has had intermittent anterior bilateral neck pressure and today developed more chest tightness. She is not short of breath. No new pedal edema but has ongoing issues related to osteoarthritis of the knee and ankles. PD PAST MEDICAL HISTORY - Past Medical History Past Medical History: Yes Cardiovascular: Hypertension, Atrial fibrillation Respiratory: Asthma Neuro: None Endocrine/Autoimmune: None GI: None ART EDUCATOR: Breast cancer : None HEENT: None Musculoskeletal: Osteoarthritis Derm: None - Past Surgical History Past Surgical History: Yes Ortho: Other /ART EDUCATOR: Mastectomy Cardiovascular: Other - Present Medications Home Medications: Ambulatory Orders Medication Instructions Recorded Confirmed ALPRAZolam [Xanax] 0.25 mg PO HS PRN 03/18/13 05/31/23 Azelastine HCl [Astepro] 1 spray NS DAILY 03/18/13 05/31/23 Fluticasone [Flonase] 1 sprays RAMIN BID 03/18/13 05/31/23 Fluticasone/Salmeterol 250/50 2 puffs INH BID 03/18/13 05/31/23 [Advair 250 Mcg/50 Mcg] Apixaban [Eliquis] 5 mg PO BID #60 tablet 05/22/22 05/31/23 Metoprolol Succinate [Toprol Xl] 50 mg PO DAILY #30 tablet 05/22/22 05/31/23 - Allergies Allergies/Adverse Reactions: Allergies Allergy/AdvReac Type Severity Reaction Status Date / Time chlordiazepoxide HCl * Allergy Severe Rash Verified 05/31/23 17:23 [From Librium] phenobarbital Allergy Severe Rash Verified 05/31/23 17:23 nickel [Nickel] Allergy Intermediate Rash Verified 05/31/23 17:23 Sulfa (Sulfonamide Allergy Intermediate Rash Verified 05/31/23 17:23 Antibiotics) prednisolone Allergy Unknown Verified 05/31/23 17:23 prednisone Allergy Unknown Verified 05/31/23 17:23 lisinopril AdvReac Unknown Verified 05/31/23 17:23 - Social History Does the pt smoke?: No Smoking Status: Never smoker Does the pt drink ETOH?: Yes Does the pt have substance abuse?: Yes - Immunizations Immunizations are current?: Yes PD ED PE NORMAL - Vitals Vital signs reviewed: Yes - General General: Alert and oriented X 3, No acute distress - Neck Neck: Supple, no meningeal sign, No bony TTP - Cardiac Cardiac: RRR, No murmur - Respiratory Respiratory: No respiratory distress, Clear bilaterally - Abdomen Abdomen: Non tender - Back Back: No CVA TTP, No spinal TTP - Derm Derm: Normal color, Warm and dry - Extremities Extremities: No edema, No calf tenderness / cord - Neuro Neuro: Alert and oriented X 3, Normal speech Results - Vitals Vitals: Vital Signs - 24 hr 05/31/23 17:20 Temperature 36.7 C Heart Rate 80 Respiratory 18 Rate Blood Pressure 164/89 H O2 Saturation 99 Oxygen O2 Source Room air - EKG (time done) 1717 EKG releavant findings:: EKG personally interpreted by author of this note. Relevant findings are: Rate: Rate (enter#) (85) Rhythm: NSR [place]: Normal Intervals: Normal MT QRS: LVH Ischemia: Normal ST segments - Labs Labs: Laboratory Tests 05/31/23 05/31/23 05/31/23 17:30 17:30 17:30 WBC 7.2 RBC 4.09 L Hgb 13.1 Hct 39.5 MCV 96.6 MCH 32.0 H MCHC 33.2 RDW 12.8 Plt Count 269 MPV 9.2 Neut # (Auto) 4.4 Lymph # (Auto) 1.8 [place] # (Auto) 0.7 Eos # (Auto) 0.3 Baso # (Auto) 0.1 Absolute Nucleated RBC 0.00 Nucleated RBC % 0.0 Sodium 135 Potassium 3.4 L Chloride 99 L Carbon Dioxide 27 Anion Gap 9.0 BUN 10 Creatinine 0.6 Estimated GFR (MDRD) 97 Glucose 129 H Calcium 9.8 Total Bilirubin 0.6 AST 27 ALT 27 Alkaline Phosphatase 68 Troponin I High Sens 4.1 Total Protein 7.4 Albumin 4.7 Globulin 2.7 Albumin/Globulin Ratio 1.7 Lipase 8 L - Rads (name of study) Single view chest x-ray is unremarkable Relevant Findings:: Final report received, EMP independent interpretation of test PD Medical Decision Making - ED course ED course: 78-year-old woman presents with ongoing neck pain and chest tightness concerning for an anginal equivalent. EKG and troponin are without evidence of ischemia here. Close cardiology follow-up was advised. CBC, CMP were normal/negative. Departure - Departure Disposition: 01 Home, Self Care Clinical Impression: Chest tightness Condition: Good Record reviewed to determine appropriate education?: Yes Instructions: ED Chest Pain NonCardiac Comments: No evidence of cardiac ischemia today. You should still call Dr. Nelson's office tomorrow, I would not be surprised if he would like to have a stress test performed. Return for new or worsening symptoms. Pending consultation with Dr. Nelson I would go back to the 50 mg of metoprolol a day and start a baby aspirin. Discharge Date/Time: 05/31/23 18:40
[2023-05-31] MEDS ORDERED: ASPIRIN CHEW 81 MG TABLET PO STA (18:18)
[2023-05-31] MEDS ORDERED: METOPROLOL TARTRATE 50 MG TABLET PO STA (18:19)
== END 2023-05-31 18:40 | disposition home or self-care (01) ==
LOC: ED 17:11
DX: R07.9 Chest pain, unspecified (principal); I10 Essential (primary) hypertension; I48.91 Unspecified atrial fibrillation; Z79.01 Long term (current) use of anticoagulants
CPT/HCPCS: 36415; 71045; 80053; 83690; 84484; 85025; 93005; 99283; 99284; A9270

== ENCOUNTER 2023-11-30 15:17 | Outpatient (CLI) | payer MEDICARE ==
[2023-11-30 15:43] LABS: BASOPHILS % (AUTO) 0.4 %; EOSINOPHILS # (AUTO) 0.3 10^3/uL (0.0-0.7); EOSINOPHILS % (AUTO) 4.3 %; HCT - HEMATOCRIT 38.4 % (37.0-47.0); HGB - HEMOGLOBIN 12.4 g/dL (12.0-16.0); LYMPHOCYTES # (AUTO) 1.5 10^3/uL (1.5-3.5); LYMPHOCYTES % (AUTO) 18.6 %; MEAN CORPUSCULAR HGB CONC 32.3 g/dL (32.0-36.0); MEAN PLATELET VOLUME 9.5 fL (7.9-10.8); MONOCYTES # (AUTO) 0.8 10^3/uL (0.0-1.0); MONOCYTES % (AUTO) 10.1 %; NEUTROPHILS # (AUTO) 5.3 10^3/uL (1.5-6.6); NEUTROPHILS % (AUTO) 66.3 %; PLT - PLATELET COUNT 248 10^3/uL (130-450); RED BLOOD COUNT 3.88 10^6/uL (4.20-5.40); RED CELL DISTRIBUTION WIDTH 12.9 % (12.0-15.0)
[2023-11-30 16:04] LABS: ALBUMIN 4.4 g/dL (3.2-5.5); ALBUMIN/GLOBULIN RATIO 1.6 (1.0-2.2); BILIRUBIN,TOTAL 0.4 mg/dL (0.2-1.0); CALCIUM 9.4 mg/dL (8.5-10.3); CREATININE 0.5 mg/dL (0.6-1.3); POTASSIUM 4.1 mmol/L (3.5-4.5); TOTAL PROTEIN 7.2 g/dL (6.4-8.9)
[2023-11-30 16:13] LABS: THYROID STIMULATING HORMONE 1.11 uIU/mL (0.34-5.60)
[2023-11-30 16:20] LABS: FERRITIN 91.6 ng/mL (11.0-306.8)
== END 2023-11-30 15:18 | disposition home or self-care (01) ==
LOC: LAB 15:17
PROVIDERS: ATTEND Nurse Practitioner Family
DX: I10 Essential (primary) hypertension (principal); L65.9 Nonscarring hair loss, unspecified
CPT/HCPCS: 36415; 80053; 82607; 82728; 82746; 83540; 84443; 84466; 85025

== ENCOUNTER 2023-12-15 10:11 | Outpatient (CLI) | payer MEDICARE ==
[2023-12-15 12:49] LABS: CALCIUM 9.9 mg/dL (8.5-10.3); CREATININE 0.6 mg/dL (0.6-1.3); POTASSIUM 4.7 mmol/L (3.5-4.5)
== END 2023-12-15 10:12 | disposition home or self-care (01) ==
LOC: LAB.N 10:11
PROVIDERS: ATTEND Nurse Practitioner
DX: I10 Essential (primary) hypertension (principal)
CPT/HCPCS: 36415; 80048

== ENCOUNTER 2024-04-15 09:15 | Outpatient (CLI) | payer MEDICARE ==
--- NOTE | 2024-04-16 10:53 | Mammography Report ---
BILATERAL DIGITAL SCREENING MAMMOGRAM 3D/2D: 04/15/2024 CLINICAL: Routine screening. Personal history of right breast cancer. Comparison is made to exams dated: 02/16/2023 mammogram, 02/15/2022 mammogram, 01/05/2021 mammogram, 12/07 mammogram, 12/06/2018 mammogram, and 10/25/2017 mammogram - [facility]. There are scattered areas of fibroglandular density in both breasts (category b / 25%-50% glandular t issue). There are benign calcifications in the left breast. There also are benign post operative findings in the right breast. No significant masses, calcifications, or other findings are seen in either breast. There has been no significant interval change. IMPRESSION: BENIGN There is no mammographic evidence of malignancy. A 1 year screening mammogram is recommended. This exam was interpreted at Station ID: [id number]. NOTE: For mammograms, a report in lay terms will be sent to the patient. Approximately 15% of breast malignancies will not be visualized mammographically. In the management of a palpable breast mass, a negative mammogram must not discourage biopsy of a clinically suspicious lesion. Electronically Signed By: Bree morales/erum:04/15/2024 17:04:46 letter sent: No_Letter ACR BI-RADS Category 2: Benign Finding(s) 3342F PARENCHYMAL PATTERN: (A) - The breast(s) demonstrate(s) scattered fibroglandular densities. BI-RADS CATEGORY: (2) - 2 RECOMMENDATION: (ANNUAL) - Recommend routine annual screening mammography. [id number] 1 year screening LATERALITY: (B)
== END 2024-04-15 09:16 | disposition home or self-care (01) ==
LOC: DI.N 09:15
DX: Z12.31 Encounter for screening mammogram for malignant neoplasm of breast (principal); R92.323 Mammographic fibroglandular density, bilateral breasts; Z85.3 Personal history of malignant neoplasm of breast